=== PATIENT | male | born 1960 | race Caucasian/White ===

== ENCOUNTER 2025-06-23 10:27 | Emergency (ER) | payer SELFPAY ==
[~2025-06-23] VITALS: Ht 175.3 cm; Wt 82.0 kg
[2025-06-23 10:33] VITALS: O2SAT 98
[2025-06-23 14:25] VITALS: BP 137/87; PULSE 87; RESP 14; TEMP 37.1; O2SAT 99
== END 2025-06-23 14:28 | disposition home or self-care (01) ==
LOC: EDBD 10:27 → ER 10:27
DX: S01.01XA Laceration without foreign body of scalp, initial encounter (principal); F84.0 Autistic disorder; X58.XXXA Exposure to other specified factors, initial encounter; Y93.89 Activity, other specified; Y92.89 Other specified places as the place of occurrence of the external cause; Y99.8 Other external cause status
CPT/HCPCS: 12002; 99284